=== PATIENT | male | born 1995 | race Caucasian/White ===

== ENCOUNTER 2020-11-09 18:27 | Emergency (ER) | payer BC ==
[2020-11-09] MEDS ORDERED: ACETAMINOPHEN 500 MG TAB ONE (18:55)
[2020-11-09 21:50] LABS: SARS-COV-2 RT PCR NEGATIVE (NEGATIVE)
[2020-11-09] MEDS ORDERED: IBUPROFEN 400 MG TAB ONE (22:15)
[2020-11-09] MEDS ORDERED: MECLIZINE HCL 12.5 MG TAB ONE (22:15)
--- NOTE | 2020-11-09 23:53 | ER ---
Nurse's Notes [facility] Name: Kyler Holt Age: 25 yrs Sex: Male : 1995 Arrival Date: 11/09/2020 Time: 18:30 Bed 20 Private MD: Diagnosis: Vertigo;Fever Presentation: 11/09 18:34 Chief complaint: Patient states: COE for 2 days. Fatigued and dizzy today. Didn't know ll1 he had fever, just felt hot at home. Slight cough/congestion. Coronavirus screen: Client denies travel out of the [place] in the last 14 days. chills, congestion, cough unrelated to allergies, fatigue, fever, headache, muscle pain, shaking with chills, Client presents with at least one sign or symptom that may indicate coronavirus-19. Standard/surgical mask placed on the client. Ebola Screen: Patient denies travel to an Ebola-affected area in the 21 days before illness onset. Initial Sepsis Screen: Does the patient meet any 2 criteria? Temp <36.0*C (96.8*F)) or > 38.3*C (100.9*F). HR > 90 bpm. No. Patient's initial sepsis screen is negative. Does the patient have a suspected source of infection? Yes: Productive cough/pneumonia. Risk Assessment: Do you want to hurt yourself or someone else? Patient reports no desire to harm self or others. Onset of symptoms was November 08, 2020. 18:34 Method Of Arrival: Ambulatory ll1 18:34 Acuity: DAVIS 3 ll1 Historical: - Allergies: 18:37 No Known Allergies; ll1 - PMHx: 18:37 None; ll1 - PSHx: 18:37 None; ll1 - Immunization history:: Flu vaccine is up to date. - Social history:: Smoking status: Patient denies any tobacco usage or history of. Screenin:00 Abuse screen: Denies threats or abuse. Nutritional screening: No deficits noted. em Tuberculosis screening: No symptoms or risk factors identified. Fall Risk None identified. Assessment: 22:00 General: Appears in no apparent distress. comfortable, Behavior is calm, cooperative, em appropriate for age, Reports fever for 12-24 hours. Pain: Complains of pain in face Pain currently is 9 out of 10 on a pain scale. Pain began 1 day ago. Neuro: Level of Consciousness is awake, alert, obeys commands, Oriented to person, place, time, situation, Appropriate for age Reports dizziness. Cardiovascular: Denies chest pain, shortness of breath, Capillary refill < 3 seconds Patient's skin is warm and dry. Respiratory: Airway is patent Respiratory effort is even, unlabored, Respiratory pattern is regular, symmetrical. GI: Patient currently denies nausea, vomiting. Derm: Skin is intact, is healthy with good turgor, Skin is pink, warm \T\ dry. Musculoskeletal: Capillary refill < 3 seconds, Range of motion: intact in all extremities. 23:05 Reassessment: Patient appears in no apparent distress at this time. Patient and/or em family updated on plan of care and expected duration. Pain level reassessed. Patient is alert, oriented x 3, equal unlabored respirations, skin warm/dry/pink. Vital Signs: 18:34 BP 142 / 95; Pulse 106; Resp 17; Temp 101.8; Pulse Ox 97% ; Weight 81.65 kg; Height 5 ll1 ft. 2 in. (157.48 cm); Pain 9/10; 11/10 00:12 BP 122 / 79; Pulse 102; Resp 18; Temp 102.9(O); Pulse Ox 99% on R/A; em 11/09 18:34 Body Mass Index 32.92 (81.65 kg, 157.48 cm) ll1 00:12 provider notified, instructed pt to remove clothing while at home em ED Course: 11/09 18:30 Patient arrived in ED. rg4 18:37 Triage completed. ll1 18:37 Arm band placed on. ll1 20:09 Mike Mckeon PA is PHCP. jmm 20:09 Geremias Dowling MD is Attending Physician. jmm 21:26 Kojo Kingston, TERA is Primary Nurse. em 21:56 CT Head Brain wo Cont In Process Unspecified. EDMS 22:00 Patient has correct armband on for positive identification. Bed in low position. Call em light in reach. Adult w/ patient. 22:25 Initial lab(s) drawn, by me, sent to lab. em 11/10 00:12 No provider procedures requiring assistance completed. Patient did not have IV access em during this emergency room visit. Administered Medications: 02/17 22:01 Drug: Motrin 600 mg Route: PO; em 11/10 00:13 Follow up: Response: No adverse reaction em 11/09 22:01 Drug: Meclizine 50 mg Route: PO; em 11/10 00:14 Follow up: Response: No adverse reaction; Marked relief of symptoms em Outcome: 11/09 23:51 Discharge ordered by MD. mclean 11/10 00:12 Discharged to home ambulatory. em Condition: improved Discharge instructions given to patient, Instructed on discharge instructions, follow up and referral plans. medication usage, Demonstrated understanding of instructions, follow-up care, medications, Prescriptions given X 1. 00:14 Patient left the ED. em Signatures: Dispatcher [employer] Mike Rasmussen PA PA jmm Munoz, Edgar, RN RN Livia Jones rg4 Carine Pedro RN RN ll1
--- NOTE | 2020-11-09 23:53 | EDPHYS ---
Physician Documentation [facility] Name: Kyler Holt Age: 25 yrs Sex: Male : 1995 Arrival Date: 11/09/2020 Time: 18:30 Bed 20 Private MD: ED Physician Geremias Dowling HPI: 11/09 21:35 This 25 yrs old Male presents to ER via Ambulatory with complaints of jmm Dizziness. 21:35 The patient presents with feeling off balance. Onset: The symptoms/episode jmm began/occurred acutely, today. Modifying factors: The symptoms are alleviated by holding head still, the symptoms are aggravated by movement of head, changing position. Associated signs and symptoms: Pertinent positives: fever, headache. The patient has not experienced similar symptoms in the past. Patient denies cough, sore throat, neck pain, shortness of breath. Historical: - Allergies: 18:37 No Known Allergies; ll1 - PMHx: 18:37 None; ll1 - PSHx: 18:37 None; ll1 - Immunization history:: Flu vaccine is up to date. - Social history:: Smoking status: Patient denies any tobacco usage or history of. ROS: 21:35 Cardiovascular: Negative for chest pain, palpitations, and edema, Respiratory: Negative jmm for shortness of breath, cough, wheezing, and pleuritic chest pain, Abdomen/GI: Negative for abdominal pain, nausea, vomiting, diarrhea, and constipation. 21:35 Constitutional: Positive for fever. 21:35 ENT: Negative for sore throat. 21:35 Respiratory: Negative for cough. 21:35 Neuro: Positive for dizziness, headache. 21:35 All other systems are negative. Exam: 21:35 Constitutional: This is a well developed, well nourished patient who is awake, alert, jmm and in no acute distress. Head/Face: atraumatic. 21:35 Neck: Trachea midline, Supple Chest/axilla: Normal chest wall appearance and motion. Cardiovascular: Regular rate and rhythm. No edema appreciated Respiratory: Normal respirations, no respiratory distress appreciated Abdomen/GI: Non distended, soft Back: Normal ROM Skin: General appearance color normal MS/ Extremity: Moves all extremities, no obvious deformities appreciated, no edema noted to the lower extremities Neuro: Awake and alert, normal gait Psych: Behavior is normal, Mood is normal, Patient is cooperative and pleasant 21:35 Eyes: Nystagmus: nystagmus with fast component noted, bilaterally. 21:35 ENT: TM's: erythema, that is moderate, bilaterally. Vital Signs: 18:34 BP 142 / 95; Pulse 106; Resp 17; Temp 101.8; Pulse Ox 97% ; Weight 81.65 kg; Height 5 ll1 ft. 2 in. (157.48 cm); Pain 9/10; 11/10 00:12 BP 122 / 79; Pulse 102; Resp 18; Temp 102.9(O); Pulse Ox 99% on R/A; em 11/09 18:34 Body Mass Index 32.92 (81.65 kg, 157.48 cm) ll1 00:12 provider notified, instructed pt to remove clothing while at home em MDM: 11/09 21:32 Patient medically screened. marisa 23:50 Data reviewed: vital signs, nurses notes. Counseling: I had a detailed discussion with caridad the patient and/or guardian regarding: the historical points, exam findings, and any diagnostic results supporting the discharge/admit diagnosis, lab results, radiology results, the need for outpatient follow up, to return to the emergency department if symptoms worsen or persist or if there are any questions or concerns that arise at home. ED course: Patient is alert and non toxic in appearance in the ED. Normal cerebellar exam, I suspect most likely perepheral vertigo. Neck is supple, patient is non toxic in appearance. I do not suspect meningitis. patient is advised to follow up with pcp. Patient is otherwise given strict return precautions. patient understood and agrees with the plan of care. . 11/09 19:10 Order name: Flu rn 11/09 19:10 Order name: Strep rn 11/09 19:10 Order name: COVID-19 : Document "Date of Symptom Onset" if Symptomatic. rn 11/09 19:11 Order name: Group A Streptococcus Rapid Sc; Complete Time: 21:33 [facility] 11/09 21:33 Order name: CT Head Brain wo Cont [facility] 11/09 21:33 Order name: EKG - Nurse/Tech; Complete Time: 22:33 [facility] 11/09 21:35 Order name: Throat Culture [facility] 11/09 21:50 Order name: COVID-19/FLU A+B; Complete Time: 21:52 [facility] 11/09 21:52 Order name: [place] Screen Profile; Complete Time: 23:08 [facility] Administered Medications: 22:01 Drug: Motrin 600 mg Route: PO; em 11/10 00:13 Follow up: Response: No adverse reaction em 11/09 22:01 Drug: Meclizine 50 mg Route: PO; em 11/10 00:14 Follow up: Response: No adverse reaction; Marked relief of symptoms em Disposition: 11/09/20 23:51 Discharged to Home. Impression: Vertigo, Fever. - Condition is Stable. - Discharge Instructions: Benign Positional Vertigo, [place] M[facility] Self-Care. - Prescriptions for Meclizine 25 mg Oral Tablet - take 1 tablet by ORAL route every 8 hours As needed; 30 tablet. - Medication Reconciliation Form, Thank You Letter, Antibiotic Education, Prescription Opioid Use form. - Follow up: Private Physician; When: 2 - 3 days; Reason: Recheck today's complaints, Continuance of care, Re-evaluation by your physician. Addendum: 12/02/2020 02:11 Co-signature as Attending Physician, Geremias Dowling MD. m a2 Signatures: Dispatcher [employer] [facility] Mike Mckeon PA PA [facility] Kojo Kingston, RN RN Geremias Dowling MD MD ma2 Carine Pedro RN RN ll1 Corrections: (The following items were deleted from the chart) 11/09 21:07 19:10 Influenza Screen (A ordered. [facility] 21:07 19:11 CORONAVIRUS ordered. [facility] 11/10 00:14 11/09 23:51 11/09/2020 23:51 Discharged to Home. Impression: Vertigo; Fever. Condition em is Stable. Forms are Medication Reconciliation Form, Thank You Letter, Antibiotic Education, Prescription Opioid Use. Follow up: Private Physician; When: 2 - 3 days; Reason: Recheck today's complaints, Continuance of care, Re-evaluation by your physician. caridad
[2020-11-10 00:25] VITALS: BP 122/79; TEMP 102.9; O2SAT 99
--- NOTE | 2020-11-10 10:01 | RAD REPORT ---
EXAM DESCRIPTION: CT - Head Brain Wo Cont - 11/10/2020 7:16 am CLINICAL HISTORY: 25 years Male COE, dizziness TECHNIQUE: Contiguous axial CT images obtained through the brain without IV contrast. Coronal and sa gittal reformats also provided. This CT exam was performed according to our departmental dose-optimization program, which includes on e or more of the following dose reduction techniques: automated exposure control, adjustment of the m A and/or kV according to patient size, and/or use of iterative reconstruction technique. COMPARISON: No prior exams provided for comparison. FINDINGS: There is no intracranial hemorrhage, extra-axial collection, or acute transcortical infarc tion. The ventricles are normal in size and contour without mass-effect or midline shift. Osseous structures are normal. The paranasal sinuses and mastoid air cells are clear. IMPRESSION: No acute intracranial abnormalities. Electronically signed by: Tashia Zayas MD 11/09/2020 10:17 PM [employer] Due to temporary technical issues with the PACS/Fluency reporting system, reports are being signed by the in house radiologist without review as a courtesy to ensure prompt reporting. The interpreting r adiologist is fully responsible for the content of the report.
== END 2020-11-10 00:14 | disposition home or self-care (01) ==
LOC: ER 18:27
DX: R50.9 Fever, unspecified (principal); Z20.822 Contact with and (suspected) exposure to COVID-19
CPT/HCPCS: 93005; 87070; 36415; 86308; 87081; 0240U; 70450; 99284